=== PATIENT | female | born 1965 | race Caucasian/White ===

== ENCOUNTER → 2017-09-06 | Outpatient (CLI) | payer MEDICAID ==
[~2017-09-06] MED LIST: AA/A14DR7 OT; ACE3 PO; ACE500 PO; ALB17R INH; ALBU8.5H11 INH; ALP25 PO; ALP5 PO; ANUS PR; ASP325 PO; ASPI-1441 PO; ASPI-719 PO; AUG875 PO; AVINZA PO; AZI250 PO; AZIT500T47 PO; CAR3.125 PO; CARV12.577 PO; CEF300 PO; CEFA-83 PO; CEFU250 PO; CEFU500T10 PO; CEP500 PO; CEPH-13 PO; CEPH250S35 PO; CHOL100060 PO; CIPR-326 PO; CLI150 PO; CLO75 PO; CYAN50TA3 PO; CYC10 PO; CYCL10TA29 PO; DAR100 PO; DIA2 PO; DIA5 PO; DIC10 PO; DIC50 PO; DIME50TA PO; DIPH-466 PO; ESTR0.4513 PO; ESTR0.62 PO; ESTR1.2525 PO; ESTR42.5 VG; FENT-60 TD; GAB100 PO; GIC *; HYDR-2946 PO; HYDR-2952 PO; HYDR-3078 PO; HYDR-3140 PO; HYDR-4305 PO; HYDR473S4 PO; HYDROCORTISONE SUPP; HYO375 PO; HYOS0.1225 SL; HYOS0.128 PO; HYOS0.152 PO; IBU200 PO; IBUPROFEN; LEV500 PO; LEVO-85 PO; LEVO50TA86 PO; LOM PO; LOR05 PO; LOR10/325 PO; LOR5 PO; LOR5/325 PO; LOR75 PO; LORA-1221 PO; LORITAB; MAG PO; MAGIC; MAGN296S36 PO; MECL-205 PO; MET800 PO; METH-271 PO; METH-543 PO; METH4TAB57 PO; METH4TAB66 PO; METO25TA93 PO; NAP500; NOR10/325 PO; NOR5/325 PO; OND4 PO; ONDA4TAB PO; ONDA4TAB97 PO; OXYGEN INH; PAN20 PO; PAN40 PO; PER PO; PRE10 PO; PRE20 PO; PRED20TA6 PO; PRO25 PO; RAN150 PO; RANI-325 PO; RANI-366 PO; RIZA10 PO; SALSP; SUCR1ORA13 PO; SUMA100T32 PO; TRAM100T22 PO; [UNRECOGNIZED DRUG - CODE] PO; [UNRECOGNIZED DRUG - OTHER] PO
--- NOTE | 2017-09-06 14:47 | RADIOLOGY IMAGING REPORT ---
FACILITY: [facility] PATIENT NAME: Neha Mcpherson : 1965 MR: [id number] V: [id number] EXAM DATE: ORDERING PHYSICIAN: СЕРГЕЙ FAIR TECHNOLOGIST: Location: [facility] - [place] Patient: Neha Mcpherson : 1965 Visit/Account:[id number] Date of Sevice: 09/06/2017 PELVIS Indication: Low back pain, SI joint pain. Comparison: None. Findings: Bones the pelvis and proximal right and left femur demonstrate normal mineralization. Right and left hip joint space is smooth. There are soft tissue calcifications right and left lower abdome n. Mild degenerative changes are seen in the lower lumbar spine. IMPRESSION: 1. Overall negative pelvic radiograph. 2. Benign soft tissue calcifications in the right and left lower abdomen. Report Dictated By: Bret Zaman at 09/06/2017 2:41 PM Report E-Signed By: Bret Zaman at 09/06/2017 2:42 PM WSN:[id number]
--- NOTE | 2017-09-06 14:47 | RADIOLOGY IMAGING REPORT ---
FACILITY: [facility] [place] PATIENT NAME: Neha Mcpherson : 1965 MR: [id number] V: [id number] EXAM DATE: ORDERING PHYSICIAN: СЕРГЕЙ FAIR TECHNOLOGIST: [facility] Patient: Neha Mcpherson : 1965 Visit/Account:[id number] Date of Sevice: 09/06/2017 SACRUM COCCYX Indication: Low back pain Comparison: None Findings: Sacrum and coccyx are intact and demonstrate normal alignment. Right and left sacroiliac mandeep ints are smooth. Benign-appearing soft tissue calcifications are seen in the soft tissues of the righ t and left buttock. IMPRESSION: Negative sacrum and coccyx radiograph. Report Dictated By: Bret Zaman at 09/06/2017 2:43 PM Report E-Signed By: Bret Zaman at 09/06/2017 2:44 PM WSN:[id number]
== END ==
LOC: RAD 13:37
PROVIDERS: ATTEND Family Medicine
DX: M54.16 Radiculopathy, lumbar region (principal)
CPT/HCPCS: 72170; 72220

== ENCOUNTER 2017-10-25 17:43 | Emergency (ER) | payer MEDICAID ==
--- NOTE | 2017-10-25 18:06 | ER Report ---
History and Physical Time Seen By MD: 18:06 HPI/ROS CHIEF COMPLAINT: Right lower quadrant abdominal pain with radiation to groin and right flank, bright red blood per rectum HISTORY OF PRESENT ILLNESS: Patient is a 52-year-old female here with complaints of bright red blood per rectum, right lower quadrant abdominal pain with radiation to flank and groin without urinary symptoms for the past several weeks. Patient reports associated nausea, cramping abdominal pain. Today she noted that she had dripping bright red blood per rectum in the setting of hemorrhoids and prior history of anemia. Patient is not currently on blood thinners. She also complains of lower extremity edema and was prescribed Lasix however is not currently taking it. Patient is afebrile, hemodynamically stable. Patient denies headache, blurred vision, chest pain, vomiting, fevers or chills, dysuria, hematuria. She does note that she has darker urine than normal. REVIEW OF SYSTEMS: Constitutional: No fever, no chills. Eyes: No discharge. ENT: No sore throat. Cardiovascular: No chest pain, no palpitations. Respiratory: No cough, no shortness of breath. Gastrointestinal: No abdominal pain, no vomiting, + nausea, + BRBPR Genitourinary: No hematuria, + dark urine Musculoskeletal: No back pain. Skin: No rashes. Neurological: No headache. Allergies: Coded Allergies: Penicillins (Verified Allergy, Severe, HIVES, 08/18/16) Sulfa (Sulfonamide Antibiotics) (Verified Allergy, Severe, ITCHING, 08/18/16 ) amoxicillin (Verified Allergy, Severe, RASH, 08/18/16) egg (Verified Allergy, Severe, NAUSEA, 08/18/16) ketorolac (Verified Allergy, Severe, SOB, 08/18/16) morphine (Verified Allergy, Severe, NOT ABLE TO BREATH, 08/18/16) tizanidine (Verified Allergy, Severe, ANAPHYLAXIS, 08/18/16) erythromycin base (Verified Allergy, Intermediate, ITCHING, 08/18/16) oxycodone (Verified Allergy, Intermediate, DYSPNEA, ITCHING, 08/18/16) Pork/Porcine Containing Products (Verified Allergy, Mild, MAKES HER SICK, 08/18/16) chlorpromazine (Verified Allergy, Mild, "I CANT BREATHE!!!!!!", 08/18/16) codeine (Verified Allergy, Mild, ITCHING, 08/18/16) cyclobenzaprine (Verified Allergy, Mild, vertigo if she takes to much, 09/16) doxycycline (Verified Allergy, Mild, ITCHING, 03/14/17) hydroxyzine (Verified Allergy, Mild, HALUCINATE, 08/18/16) tomato (Verified Allergy, Mild, ITCH, 08/18/16) caffeine (Verified Adverse Reaction, Mild, IRRITABLE, 08/18/16) hydromorphone (Verified Adverse Reaction, Mild, DOES NOT LIKE HOW IT MAKES HER FEEL, 08/18/16) Uncoded Allergies: CHOCOLATE FLAVOR (Allergy, Mild, NAUSEA, 10/24/11) Home Meds Active Scripts Prednisone (PREDNISONE) 20 Mg Tablet, 40 MG PO QDAY for 4 Days, #8 TAB Prov:ROSEY MARINELLI DO 10/25/17 Cefuroxime Axetil (CEFUROXIME) 500 Mg Tablet, 500 MG PO BID, #20 TAB Prov:RAFIQ WATTS PA-C 03/14/17 Cyclobenzaprine Hcl (CYCLOBENZAPRINE HCL) 10 Mg Tablet, 5 MG PO TID Y for MUSCLE SPASMS, #9 TAB Prov:FRANCISCO AWANP 03/09/16 Reported Medications Estrogens, Conjugated 0.625 Mg Tab (PREMARIN 0.625 MG TAB) 0.625 Mg Tablet, 0.625 MG PO QDAY, TAB 08/18/16 Ranitidine Hcl (ZANTAC) 150 Mg Tablet, 300 MG PO DAILY, TAB 08/18/16 Levothyroxine Sodium (LEVOTHYROXINE SODIUM) 50 Mcg Tablet, 1 TAB PO QDAY, TAB 02/23/16 Gabapentin (Neurontin) 100 Mg Cap, 100 MG PO TID PT IS PRESCRIBED 200MG TID, BUT SHE STATES SHE WONT TAKE THAT AND TAKES 100MG TID 05/20/12 Acetaminophen/Hydrocodone ([place] 10) 1 Ea Tab, 1-2 TAB PO Q4-6H Y for PAIN 05/20/12 Alprazolam (Xanax) 0.5 Mg Tab, 0.5 MG PO TID Y for ANXIETY, 0 Refills 04/28/11 Discontinued Reported Medications Ondansetron Hcl (ZOFRAN) 4 Mg Tablet, 4 MG PO PRN Y for NAUSEA, TAB 6/2/17 Discontinued Scripts Ondansetron (ZOFRAN ODT) 4 Mg Tab.rapdis, 4 MG PO Q6H Y for NAUSEA/VOMITING, # 12 TAB.NORMA Prov:RAFIQ WATTS Ashley PERRY 03/14/17 Hx Smoking: No Smoking Status: Never Smoker Exposure to Second Hand Smoke?: Yes (LIVES WITH SMOKERS) Hx Substance Use Disorder: No Hx Alcohol Use: No Constitutional Vital Sign - Last 24 Hours 10/25/17 10/25/17 10/25/17 10/25/17 18:01 18:35 18:45 18:45 Temp 98.2 Pulse 84 87 89 Resp 16 16 B/P (MAP) 138/98 150/88 (108) Pulse Ox 89 87 O2 Delivery Room Air 10/25/17 10/25/17 18:45 18:52 Pulse 92 Resp 16 Pulse Ox 97 O2 Delivery Room Air Physical Exam General Appearance: The patient is alert, has no immediate need for airway protection and no signs of toxicity. No acute distress Eyes: Pupils equal and round no pallor or injection. ENT, Mouth: Mucous membranes are moist. Respiratory: There are no retractions, lungs are clear to auscultation. Cardiovascular: Regular rate and rhythm. Gastrointestinal: Abdomen is soft and non tender, no masses, bowel sounds normal, + external hemorrhoids with no occult bleeding Neurological: No focal deficits Skin: Warm and dry, no rashes. Musculoskeletal: Neck is supple non tender. Extremities are nontender, nonswollen and have full range of motion. DIFFERENTIAL DIAGNOSIS: After history and physical exam differential diagnosis was considered for rectal bleed, nephrolithiasis, diverticulitis, cancer, hemorrhoids, anemia Medical Decision Making Data Points Result Diagram: 10/25/17181410/25/171814 Laboratory Hematology Test 10/25/17 17:56 10/25/17 18:15 10/25/17 18:35 Urine Color Straw Urine Clarity Clear Urine pH 6.0 pH (4.8-9.5) Urine Specific [place] 1.003 Urine Protein Negative mg/dL (NEGATIVE) Urine Glucose (UA) Negative mg/dL (NEGATIVE) Urine Ketones Negative mg/dL (NEGATIVE) Urine Blood Moderate (NEGATIVE) Urine Nitrite Negative (NEGATIVE) Urine Bilirubin Negative (NEGATIVE) Urine Urobilinogen Negative mg/dL (0.2-1.9) Urine Leukocyte Esterase Negative (NEGATIVE) Urine RBC <1 /HPF (0-2/HPF) Urine WBC 3 /HPF (0-5/HPF) Urine Squamous Epithelial Cells None /LPF (</=FEW) Urine Bacteria Few /HPF (NONE-FEW) Urine Mucus None /HPF (NONE-FEW) Red Blood Count 4.40 M/uL (4.17-5.56) Mean Corpuscular Volume 92.9 fL (80.0-96.0) Mean Corpuscular Hemoglobin 32.4 pg (26.0-33.0) Mean Corpuscular Hemoglobin Concent 34.9 g/dL (32.0-36.0) Red Cell Distribution Width 12.6 % (11.5-14.5) Mean Platelet Volume 7.9 fL (7.2-11.1) Neutrophils (%) (Auto) 44.3 % (39.4-72.5) Lymphocytes (%) (Auto) 47.4 % (17.6-49.6) Monocytes (%) (Auto) 6.4 % (4.1-12.4) Eosinophils (%) (Auto) 1.6 % (0.4-6.7) Basophils (%) (Auto) 0.3 % (0.3-1.4) Nucleated RBC Relative Count (auto) 0.1 /100WBC Neutrophils # (Auto) 2.4 K/uL (2.0-7.4) Lymphocytes # (Auto) 2.5 K/uL (1.3-3.6) Monocytes # (Auto) 0.3 K/uL (0.3-1.0) Eosinophils # (Auto) 0.1 K/uL (0.0-0.5) Basophils # (Auto) 0.0 K/uL (0.0-0.1) Nucleated RBC Absolute Count (auto) 0.00 K/uL Prothrombin Time 12.6 seconds (12.0-14.4) Prothromb Time International Ratio 0.94 Activated Partial Thromboplast Time 36 seconds (23-35) Sodium Level 140 mmol/L (137-145) Potassium Level 4.0 mmol/L (3.5-5.0) Chloride Level 102 mmol/L (98-107) Carbon Dioxide Level 26 mmol/L (22-31) Blood Urea Nitrogen 11 mg/dl (7-18) Creatinine 0.90 mg/dl (0.52-1.04) Glomerular Filtration Rate Calc > 60.0 Random Glucose 93 mg/dl (75-110) Calcium Level 9.3 mg/dl (8.4-10.2) Total Bilirubin 0.4 mg/dl (0.2-1.3) Aspartate Amino Transf (AST/SGOT) 34 U/L (0-35) Alanine Aminotransferase (ALT/SGPT) 21 U/L (0-56) Alkaline Phosphatase 76 U/L (0-126) Troponin I < 0.012 ng/ml Total Protein 7.7 g/dl (6.3-8.2) Albumin 4.3 g/dl (3.5-5.0) Lipase 37 U/L (23-300) Stool Occult Blood (IFOB) Positive (NEGATIVE) Chemistry Test 10/25/17 17:56 10/25/17 18:15 10/25/17 18:35 Urine Color Straw Urine Clarity Clear Urine pH 6.0 pH (4.8-9.5) Urine Specific [place] 1.003 Urine Protein Negative mg/dL (NEGATIVE) Urine Glucose (UA) Negative mg/dL (NEGATIVE) Urine Ketones Negative mg/dL (NEGATIVE) Urine Blood Moderate (NEGATIVE) Urine Nitrite Negative (NEGATIVE) Urine Bilirubin Negative (NEGATIVE) Urine Urobilinogen Negative mg/dL (0.2-1.9) Urine Leukocyte Esterase Negative (NEGATIVE) Urine RBC <1 /HPF (0-2/HPF) Urine WBC 3 /HPF (0-5/HPF) Urine Squamous Epithelial Cells None /LPF (</=FEW) Urine Bacteria Few /HPF (NONE-FEW) Urine Mucus None /HPF (NONE-FEW) White Blood Count 5.4 k/uL (4.5-11.0) Red Blood Count 4.40 M/uL (4.17-5.56) Hemoglobin 14.3 g/dL (12.0-16.0) Hematocrit 40.9 % (34.0-47.0) Mean Corpuscular Volume 92.9 fL (80.0-96.0) Mean Corpuscular Hemoglobin 32.4 pg (26.0-33.0) Mean Corpuscular Hemoglobin Concent 34.9 g/dL (32.0-36.0) Red Cell Distribution Width 12.6 % (11.5-14.5) Platelet Count 270 K/uL (150-450) Mean Platelet Volume 7.9 fL (7.2-11.1) Neutrophils (%) (Auto) 44.3 % (39.4-72.5) Lymphocytes (%) (Auto) 47.4 % (17.6-49.6) Monocytes (%) (Auto) 6.4 % (4.1-12.4) Eosinophils (%) (Auto) 1.6 % (0.4-6.7) Basophils (%) (Auto) 0.3 % (0.3-1.4) Nucleated RBC Relative Count (auto) 0.1 /100WBC Neutrophils # (Auto) 2.4 K/uL (2.0-7.4) Lymphocytes # (Auto) 2.5 K/uL (1.3-3.6) Monocytes # (Auto) 0.3 K/uL (0.3-1.0) Eosinophils # (Auto) 0.1 K/uL (0.0-0.5) Basophils # (Auto) 0.0 K/uL (0.0-0.1) Nucleated RBC Absolute Count (auto) 0.00 K/uL Prothrombin Time 12.6 seconds (12.0-14.4) Prothromb Time International Ratio 0.94 Activated Partial Thromboplast Time 36 seconds (23-35) Glomerular Filtration Rate Calc > 60.0 Calcium Level 9.3 mg/dl (8.4-10.2) Total Bilirubin 0.4 mg/dl (0.2-1.3) Aspartate Amino Transf (AST/SGOT) 34 U/L (0-35) Alanine Aminotransferase (ALT/SGPT) 21 U/L (0-56) Alkaline Phosphatase 76 U/L (0-126) Troponin I < 0.012 ng/ml Total Protein 7.7 g/dl (6.3-8.2) Albumin 4.3 g/dl (3.5-5.0) Lipase 37 U/L (23-300) Stool Occult Blood (IFOB) Positive (NEGATIVE) Coagulation Test 10/25/17 18:15 Prothrombin Time 12.6 seconds Prothromb Time International Ratio 0.94 Activated Partial Thromboplast Time 36 seconds Urinalysis Test 10/25/17 17:56 Urine Color Straw Urine Clarity Clear Urine pH 6.0 pH (4.8-9.5) Urine Specific [place] 1.003 Urine Protein Negative mg/dL (NEGATIVE) Urine Glucose (UA) Negative mg/dL (NEGATIVE) Urine Ketones Negative mg/dL (NEGATIVE) Urine Blood Moderate (NEGATIVE) Urine Nitrite Negative (NEGATIVE) Urine Bilirubin Negative (NEGATIVE) Urine Urobilinogen Negative mg/dL (0.2-1.9) Urine Leukocyte Esterase Negative (NEGATIVE) Urine RBC <1 /HPF (0-2/HPF) Urine WBC 3 /HPF (0-5/HPF) Urine Squamous Epithelial Cells None /LPF (</=FEW) Urine Bacteria Few /HPF (NONE-FEW) Urine Mucus None /HPF (NONE-FEW) EKG/Imaging EKG Interpretation 12 lead EKG: Normal sinus rhythm rate 88 QTc 459 and no ischemic changes Rhythm: normal sinus rhythm [place]: normal QRS: normal ST segments: normal Monitor Interpretation: Normal Sinus Rhythm Imaging Examination: CHEST PA AND LAT Comparison: 03/14/2017 and earlier. History: Shortness of breath. Findings: Mediastinal postoperative change as before. Cardiac silhouette size is unchanged. No new or enlarging consolidation or nodule. No pneumothorax, edema, or effusion. Osseous structures are intact. IMPRESSION: Mediastinal postoperative change as before. No evidence of acute cardiopulmonary disease. EXAMINATION: CT abdomen and pelvis with contrast COMPARISON: CT 08/23/2009 HISTORY: Right lower quadrant abdominal pain radiating to the right flank and groin. PROCEDURE: Multiplanar contrast enhanced CT of the abdomen and pelvis with 75 mL intravenous Isovue 370. One of the following dose optimization techniques was utilized in the performance of this exam: Automated exposure control; adjustment of the mA and/or kV according to the patient's size; or use of an iterative reconstruction technique. Specific details can be referenced in the facility's radiology CT exam operational policy. FINDINGS: Visualized thorax: Incompletely visualized esophagectomy with an interposition graft in the anterior mediastinum. Liver: Negative. Gallbladder and biliary system: Cholecystectomy with chronic bile duct dilation. Spleen: Negative. Pancreas: Diffuse atrophy. No inflammation. Adrenal glands: Negative. Kidneys and bladder: No renal mass or evidence of an obstructive uropathy. Urinary bladder is unremarkable. Vessels: Within normal limits. Bowel and mesentery: Esophagectomy with an interposition graft in the anterior mediastinum. The interposition graft is anastomosed to the distal lesser curvature/anterior gastric antrum. Additionally, there is focal tenting along the anterior gastric body and adjacent gastric wall presumably related to prior gastrostomy tube. No focal gastric wall thickening or inflammation is identified. No small bowel obstruction. Small amount of stool in the colon. Pelvic organs: Negative. Lymph nodes: No adenopathy. Free air/free fluid: None. Abdominal wall and osseous structures: No abdominal wall hernia. Mild degenerative change of the lower lumbar spine. No acute findings. IMPRESSION: 1. No findings of acute disease in the abdomen or pelvis. 2. Esophageal and gastric surgery as before. 3. Additional nonacute findings as described above. ED Course/Re-evaluation ED Course Patient is a 52-year-old female here with complaints of bright red blood per rectum, right sided abdominal pain with flank pain associated. Abdominal pain has been present for several weeks however blood per rectum has been present today. Patient reports that she has a history of anemia and she also has a history of hemorrhoids which are present on exam. Hemoccult was collected and sent. Patient also complains of mild nausea and mild weakness. Patient is afebrile, hemodynamically stable. EKG showed no ischemic changes normal sinus rhythm. Patient reported that she had shortness of breath and she noted that she usually uses an inhaler at home and feels that her chest is mildly tight. Labs unremarkable. Troponin negative. Patient maintaining oxygen saturations 90% . Hemoccult positive. Patient was recommended to follow up with gastroenterology for further workup of GI bleed. Decision to Disposition Date: Oct 25, 2017 Decision to Disposition Time: 21:00 Depart Departure Latest Vital Signs Vital Signs Date Time Temp Pulse Resp B/P (MAP) Pulse Ox O2 Delivery O2 Flow Rate FiO2 10/25/17 18:52 92 16 10/25/17 18:45 97 Room Air 10/25/17 18:35 150/88 (108) 10/25/17 18:01 98.2 Impression: Primary Impression: Abdominal pain Additional Impression: Gastrointestinal bleeding Condition: Improved Disposition: HOME OR SELF-CARE New Scripts Prednisone (PREDNISONE) 20 Mg Tablet 40 MG PO QDAY for 4 Days, #8 TAB Prov: ROSEY MARINELLI DO 10/25/17 Patient Instructions: Gastrointestinal Bleeding (ED), Prednisone (By mouth) Additional Instructions: Please follow up with surgery or gastroenterology for further evaluation of chest and has bleeding. Please take prednisone 2 tablets daily for 4 days. Please use your inhaler as prescribed. Please drink plenty of water. Please return promptly if you develop fevers, worsening abdominal pain, nausea, vomiting, weakness. Problem Qualifiers ROSEY MARINELLI DO Oct 25, 2017 18:06
[2017-10-25] MEDS ORDERED: NS(*) 0.9% 1000 ML BAG 1,000 ML IV ONE (18:33)
[2017-10-25 18:35] VITALS: BP 150/88
[2017-10-25] MEDS ORDERED: ALBUTEROL/IPRATROPIUM 3 ML NEB NEB ONE (18:35)
[2017-10-25] MEDS ORDERED: ONDANSETRON 4 MG/2 ML VIAL IVP ONE (18:35)
[2017-10-25 18:47] LABS: PLATELET COUNT, AUTOMATED 270 K/uL (150-450)
[2017-10-25] MEDS ORDERED: IOPAMIDOL 76% 100 ML INFUS BTL 100 ML ONE (18:48)
[2017-10-25 18:50] LABS: INR 0.94
--- NOTE | 2017-10-25 18:56 | EKG ---
FACILITY: [facility] PATIENT NAME: EJ HEATON : [id number] MR: [id number] V: [id number] EXAM DATE: ORDERING PHYSICIAN: ROSEY MARINELLI TECHNOLOGIST: WIL Test Reason : BLOOD LOSS Blood Pressure : / mmHG Vent. Rate : 088 BPM Atrial Rate : 088 BPM P-R Int : 164 ms QRS Dur : 098 ms QT Int : 380 ms P-R-T Axes : 058 -04 033 degrees QTc Int : 459 ms Sinus rhythm Nonspecific interventricular conduction delay Borderline left axis Abnormal ECG No previous ECGs available Confirmed by JASWINDER MANLEY ([id number]) on 10/26/2017 6:03:13 AM Referred By: ISIS Confirmed By:JASWINDER MANLEY
--- NOTE | 2017-10-25 20:10 | RADIOLOGY IMAGING REPORT ---
FACILITY: [facility] PATIENT NAME: Neha Mcpherson : 1965 MR: [id number] V: [id number] EXAM DATE: ORDERING PHYSICIAN: ROSEY MARINELLI TECHNOLOGIST: Location: [facility] - [place] Patient: Neha Mcpherson : 1965 Visit/Account:[id number] Date of Sevice: 10/25/2017 EXAMINATION: CT abdomen and pelvis with contrast COMPARISON: CT 08/23/2009 HISTORY: Right lower quadrant abdominal pain radiating to the right flank and groin. PROCEDURE: Multiplanar contrast enhanced CT of the abdomen and pelvis with 75 mL intravenous Isovue 3 70. One of the following dose optimization techniques was utilized in the performance of this exam: A utomated exposure control; adjustment of the mA and/or kV according to the patient's size; or use of an iterative reconstruction technique. Specific details can be referenced in the facility's radiolo gy CT exam operational policy. FINDINGS: Visualized thorax: Incompletely visualized esophagectomy with an interposition graft in the anterior mediastinum. Liver: Negative. Gallbladder and biliary system: Cholecystectomy with chronic bile duct dilation. Spleen: Negative. Pancreas: Diffuse atrophy. No inflammation. Adrenal glands: Negative. Kidneys and bladder: No renal mass or evidence of an obstructive uropathy. Urinary bladder is unrema rkable. Vessels: Within normal limits. Bowel and mesentery: Esophagectomy with an interposition graft in the anterior mediastinum. The inter position graft is anastomosed to the distal lesser curvature/anterior gastric antrum. Additionally, t here is focal tenting along the anterior gastric body and adjacent gastric wall presumably related to prior gastrostomy tube. No focal gastric wall thickening or inflammation is identified. No small bow el obstruction. Small amount of stool in the colon. Pelvic organs: Negative. Lymph nodes: No adenopathy. Free air/free fluid: None. Abdominal wall and osseous structures: No abdominal wall hernia. Mild degenerative change of the lowe r lumbar spine. No acute findings. IMPRESSION: 1. No findings of acute disease in the abdomen or pelvis. 2. Esophageal and gastric surgery as before. 3. Additional nonacute findings as described above. Report Dictated By: Henry Wolf MD at 10/25/2017 7:50 PM Report E-Signed By: Henry Wolf MD at 10/25/2017 8:06 PM WSN:[id number]
--- NOTE | 2017-10-25 20:12 | RADIOLOGY IMAGING REPORT ---
FACILITY: [facility] [place] PATIENT NAME: Neha Mcpherson : 1965 MR: [id number] V: [id number] EXAM DATE: ORDERING PHYSICIAN: ROSEY MARINELLI TECHNOLOGIST: Location: [facility] - [place] Patient: Neha Mcpherson : 1965 Visit/Account:[id number] Date of Sevice: 10/25/2017 Examination: CHEST PA AND LAT Comparison: 03/14/2017 and earlier. History: Shortness of breath. Findings: Mediastinal postoperative change as before. Cardiac silhouette size is unchanged. No new or enlarging consolidation or nodule. No pneumothorax, edema, or effusion. Osseous structures are intac t. IMPRESSION: Mediastinal postoperative change as before. No evidence of acute cardiopulmonary disease. Report Dictated By: Henry Wolf MD at 10/25/2017 8:06 PM Report E-Signed By: Henry Wolf MD at 10/25/2017 8:08 PM WSN:[id number]
[2017-10-25] MEDS ORDERED: PRED20TA6 PO (20:54)
[2017-10-25] MEDS ORDERED: predniSONE 20 MG TAB PO ONE (20:55)
== END 2017-10-25 21:06 | disposition home or self-care (01) ==
LOC: ER 18:08
DX: K92.2 Gastrointestinal hemorrhage, unspecified (principal); R10.31 Right lower quadrant pain; R06.02 Shortness of breath
CPT/HCPCS: 36415; 71046; 74177; 81001; 82274; 83690; 84484; 85025; 85610; 85730; 86850; 86900; 86901; 93005; 94640; 96361; 96374; 99284; J2405; J7030; J7620; Q9967; 82040; 82247; 82310; 82374; 82435; 82565; 82947; 84075; 84132; 84155; 84295; 84450; 84460; 84520

== ENCOUNTER → 2017-12-20 | Outpatient (CLI) | payer MEDICAID | LOC: LAB 15:55 | PROVIDERS: ATTEND Family Medicine | DX: M54.16 Radiculopathy, lumbar region (principal) | CPT/HCPCS: 36415; 82565 ==

== ENCOUNTER → 2018-01-23 | Outpatient (CLI) | payer MEDICAID ==
--- NOTE | 2018-01-23 16:06 | RADIOLOGY IMAGING REPORT ---
FACILITY: [facility] - [place] PATIENT NAME: Neha Mcpherson : 1965 MR: [id number] V: [id number] EXAM DATE: ORDERING PHYSICIAN: СЕРГЕЙ FAIR TECHNOLOGIST: Location: [facility] - [place] Patient: Neha Mcpherson : 1965 Visit/Account:[id number] Date of Sevice: 01/23/2018 L SPINE W W/O CONTRAST COMPARISON: Views of the lumbar spine dated October 21, 2009 Additional pertinent history: Low back pain with radiculopathy involving both lower extremities. Technique: Multiplanar multisequence lumbar spine MRI was performed with and without gadolinium enhan cement. Contrast: 15 ml of MultiHance FINDINGS: Vertebral body heights and alignment: Grade 1 anterior listhesis of L4 on L5. Minimal retrolisthesis of L5 on S1. Vertebral marrow signal: Mild type one degenerative endplate changes at L4-L5. Distal thoracic cord and conus: Negative. The conus ends at L1-L2. Surrounding soft tissues: Negative. Inspection of the disc spaces reveal the following: L5-S1: Posterior broad-based disc protrusion with facet hypertrophic changes. Mild bilateral neural f oraminal narrowing with moderate canal stenosis. L4-L5: Minimal grade 1 anterior listhesis of L4 on L5. Posterior broad-based disc protrusion. Facet h ypertrophic changes. Moderate bilateral neural foraminal narrowing with moderate canal stenosis. L3-L4: Posterior broad-based disc protrusion with facet hypertrophic changes. Mild canal stenosis wit h mild bilateral neural foraminal narrowing. L2-L3: Minimal circumferential disc bulging with facet hypertrophic changes. No significant canal or neural foraminal narrowing. L1-L2: Negative. T12-L1: Negative. Pathologic enhancement: Negative. IMPRESSION: 1. Multilevel spondylitic change as discussed above. 2. Findings of moderate bilateral neural foraminal narrowing and moderate canal stenosis at L4-L5. 3. Moderate canal stenosis with mild bilateral neural foraminal narrowing at L5-S1. Report Dictated By: Bolivar Hough MD at 01/23/2018 3:56 PM Report E-Signed By: Bolivar Hough MD at 01/23/2018 4:02 PM WSN:[email or web address]
== END ==
LOC: MRI 00:33
PROVIDERS: ATTEND Family Medicine
DX: M47.895 Other spondylosis, thoracolumbar region (principal); M48.061 Spinal stenosis, lumbar region without neurogenic claudication
CPT/HCPCS: 72158

== ENCOUNTER 2018-08-14 13:27 | Emergency (ER) | payer MEDICAID ==
[~2018-08-14 13:27] MED LIST changes: +ALB6.7R INH; +CLOB15CR22 TP; +CYAN250013; +DIPH-741 PO; +ESCI20TA38 PO; +FURO20TA19 PO; -HYDR-4305 PO; +HYDR-627 PO; +HYOS0.1225 PO; +PHEN57OI; +SIME62.54 PO; +TIZA2CAP3 PO; +VILA10TA PO; +[UNRECOGNIZED DRUG - CODE] PO
--- NOTE | 2018-08-14 13:33 | ER Report ---
History and Physical Time Seen By MD: 13:31 HPI/ROS CHIEF COMPLAINT: Headache, sinus pressure, nausea, right flank pain flank pain HISTORY OF PRESENT ILLNESS: Patient is a 53-year-old female who presents to the emergency department with complaint of sinus headache. Apparently patient has a history of chronic sinusitis and is on antibiotics monthly. She has a scheduled appointment to see Dr. García Ross for what sounds like sinus surgery to correct her problem. She has not attended that visit yet. Patient states no fevers she does report retro-orbital pain bilaterally when she moves her eyes. She has postnasal drip which is worse at nighttime. She feels congestion to her nose and difficulty breathing at nighttime. She also is complaining of some right flank pain and was recently treated for urinary tract infection. Patient has multiple medical medication and antibiotic allergies. Believes that she takes Levaquin when she gets a sinus infection. REVIEW OF SYSTEMS: ENT: Bilateral ear pain, sinus pressure, no throat pain Respiratory: No cough, no dyspnea. Cardiovascular: No chest pain, no palpitations. Gastrointestinal: No vomiting, no abdominal pain. Musculoskeletal: Right flank pain Allergies: Coded Allergies: Penicillins (Verified Allergy, Severe, HIVES, 08/18/16) Sulfa (Sulfonamide Antibiotics) (Verified Allergy, Severe, ITCHING, 08/18/16) amoxicillin (Verified Allergy, Severe, RASH, 08/18/16) egg (Verified Allergy, Severe, NAUSEA, 08/18/16) ketorolac (Verified Allergy, Severe, SOB, 08/18/16) morphine (Verified Allergy, Severe, NOT ABLE TO BREATH, 08/18/16) tizanidine (Verified Allergy, Severe, ANAPHYLAXIS, 08/18/16) erythromycin base (Verified Allergy, Intermediate, ITCHING, 08/18/16) oxycodone (Verified Allergy, Intermediate, DYSPNEA, ITCHING, 08/18/16) Pork/Porcine Containing Products (Verified Allergy, Mild, MAKES HER SICK, 08/18/16) chlorpromazine (Verified Allergy, Mild, "I CANT BREATHE!!!!!!", 08/18/16) codeine (Verified Allergy, Mild, ITCHING, 08/18/16) cyclobenzaprine (Verified Allergy, Mild, vertigo if she takes to much, 09/16/16) doxycycline (Verified Allergy, Mild, ITCHING, 03/14/17) hydroxyzine (Verified Allergy, Mild, HALUCINATE, 08/18/16) tomato (Verified Allergy, Mild, ITCH, 08/18/16) caffeine (Verified Adverse Reaction, Mild, IRRITABLE, 08/18/16) hydromorphone (Verified Adverse Reaction, Mild, DOES NOT LIKE HOW IT MAKES HER FEEL, 08/18/16) Uncoded Allergies: CHOCOLATE FLAVOR (Allergy, Mild, NAUSEA, 10/24/11) Home Meds Active Scripts Ondansetron Hcl (ZOFRAN) 4 Mg Tablet, 4 MG PO Q8H for Nausea, #15 TAB 0 Refills Prov:SHANNAN DUMONT MD 08/14/18 Levofloxacin 500 Mg Tab (LEVAQUIN 500 MG TAB) 500 Mg Tablet, 500 MG PO BID for 10 Days, #20 TAB 0 Refills Prov:SHANNAN DUMONT MD 08/14/18 Sodium,Potassium,&Mag Sulfates (SUPREP BOWEL PREP KIT) 354 Ml Soln.recon, 354 ML PO ONCE for 1 Day, #1 BOTTLE Prov:JANINA HIGUERA 08/10/18 Cyclobenzaprine Hcl (CYCLOBENZAPRINE HCL) 10 Mg Tablet, 5 MG PO TID PRN for MUSCLE SPASMS, #9 TAB Prov:FRANCISCO AWAN [employer]OR [employer] 03/09/16 Reported Medications Potassium Gluconate (POTASSIUM) 99 Mg Tablet, 99 MG PO 08/14/18 Levothyroxine Sodium (LEVOTHYROXINE SODIUM) 88 Mcg Tablet, 88 MCG PO QDAY 08/14/18 Tizanidine Hcl (TIZANIDINE HCL) Unknown Strength Capsule, PO TID, CAPSULE 08/10/18 Vilazodone Hydrochloride (VIIBRYD) 10 Mg Tablet, 10 MG PO 08/10/18 Cyanocobalamin (Vitamin B-12) (Vitamin B12) Unknown Strength Tab.chew 08/10/18 Clobetasol Propionate/Emoll (CLOBETASOL EMOLLIENT 0.05% CRM) Unknown Strength Cream..g., TP BID 08/10/18 Phenyleph/Mineral Oil/Petrolat (Hemorrhoidal Ointment) Unknown Strength Oint.appl 08/10/18 Diphenhydramine Hcl (BENADRYL ALLERGY) Unknown Strength Tablet, PO Q6-8H, TAB 08/10/18 Simethicone (GAS-X) Unknown Strength Strip, PO, STRIP 08/10/18 Furosemide (LASIX) 20 Mg Tablet, 1 TAB PO Q8H, TAB 02/14/18 Albuterol Sulfate (PROVENTIL HFA) 6.7 Gm Inh, 2 PUFF INH Q4-6H, INH 02/14/18 Hyoscyamine Sulfate (HYOSCYAMINE SULFATE) 0.125 Mg Tablet, 0.125 MG PO 02/14/18 Escitalopram Oxalate (LEXAPRO) 20 Mg Tablet, 10 MG PO QDAY, TAB 02/14/18 Estrogens, Conjugated 0.625 Mg Tab (PREMARIN 0.625 MG TAB) 0.625 Mg Tablet, 0.625 MG PO QDAY, TAB 08/18/16 Ranitidine Hcl (ZANTAC) 150 Mg Tablet, 300 MG PO DAILY, TAB 08/18/16 Levothyroxine Sodium (LEVOTHYROXINE SODIUM) 50 Mcg Tablet, 1 TAB PO QDAY, TAB 02/23/16 Gabapentin (Neurontin) 100 Mg Cap, 100 MG PO TID PT IS PRESCRIBED 200MG TID, BUT SHE STATES SHE WONT TAKE THAT AND TAKES 100MG TID 05/20/12 Acetaminophen/Hydrocodone ([place] 10/325) 1 Ea Tab, 1-2 TAB PO Q4-6H PRN for PAIN 05/20/12 Alprazolam (Xanax) 0.5 Mg Tab, 0.5 MG PO TID PRN for ANXIETY, 0 Refills 04/28/11 Past Medical/Surgical History Patient has a past medical history of 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 Patient has a surgical history of C-spine fusion, back surgery, appendectomy, colectomy, hysterectomy. Hx Smoking: No Smoking Status: Never Smoker Exposure to Second Hand Smoke?: Yes (LIVES WITH SMOKERS) Hx Substance Use Disorder: No Hx Alcohol Use: No Constitutional Vital Sign - Last 24 Hours 08/14/18 08/14/18 13:34 13:42 Temp 99.6 Pulse 98 Resp 18 B/P (MAP) 127/98 Pulse Ox 77 O2 Delivery Room Air O2 Flow Rate 3.5 Physical Exam General Appearance: Alert, no distress. Eyes: Pupils equal and round no pallor or injection. ENT, Mouth: Ears: Tympanic membranes are normal. Nose: No bleeding. Mouth: Mucous membranes are moist. Throat: No erythema or exudates there is no tonsillar hypertrophy and uvula is midline. Patient with posterior pharyngeal cobblestoning. Musculoskeletal: Neck is supple non tender, no adenopathy. Skin: Warm and dry, no rashes. Bedside ultrasound was performed looking at the right flank. No evidence of hydronephrosis visualized. Medical Decision Making Data Points Laboratory Hematology Test 08/14/18 14:00 Urine Color Yellow Urine Clarity Clear Urine pH 7.0 pH (4.8-9.5) Urine Specific [place] 1.005 Urine Protein Negative mg/dL (NEGATIVE) Urine Glucose (UA) Negative mg/dL (NEGATIVE) Urine Ketones Negative mg/dL (NEGATIVE) Urine Blood Small (NEGATIVE) Urine Nitrite Negative (NEGATIVE) Urine Bilirubin Negative (NEGATIVE) Urine Urobilinogen 0.2 mg/dL (0.2-1.9) Urine Leukocyte Esterase Negative (NEGATIVE) Urine RBC 2-3 /HPF (0-2/HPF) Urine WBC 0-1 /HPF (0-5/HPF) Urine Squamous Epithelial Cells Rare /LPF (</=FEW) Urine Bacteria Rare /HPF (NONE-FEW) Urine Mucus None /HPF (NONE-FEW) Chemistry Test 08/14/18 14:00 Urine Color Yellow Urine Clarity Clear Urine pH 7.0 pH (4.8-9.5) Urine Specific [place] 1.005 Urine Protein Negative mg/dL (NEGATIVE) Urine Glucose (UA) Negative mg/dL (NEGATIVE) Urine Ketones Negative mg/dL (NEGATIVE) Urine Blood Small (NEGATIVE) Urine Nitrite Negative (NEGATIVE) Urine Bilirubin Negative (NEGATIVE) Urine Urobilinogen 0.2 mg/dL (0.2-1.9) Urine Leukocyte Esterase Negative (NEGATIVE) Urine RBC 2-3 /HPF (0-2/HPF) Urine WBC 0-1 /HPF (0-5/HPF) Urine Squamous Epithelial Cells Rare /LPF (</=FEW) Urine Bacteria Rare /HPF (NONE-FEW) Urine Mucus None /HPF (NONE-FEW) Urinalysis Test 08/14/18 14:00 Urine Color Yellow Urine Clarity Clear Urine pH 7.0 pH (4.8-9.5) Urine Specific [place] 1.005 Urine Protein Negative mg/dL (NEGATIVE) Urine Glucose (UA) Negative mg/dL (NEGATIVE) Urine Ketones Negative mg/dL (NEGATIVE) Urine Blood Small (NEGATIVE) Urine Nitrite Negative (NEGATIVE) Urine Bilirubin Negative (NEGATIVE) Urine Urobilinogen 0.2 mg/dL (0.2-1.9) Urine Leukocyte Esterase Negative (NEGATIVE) Urine RBC 2-3 /HPF (0-2/HPF) Urine WBC 0-1 /HPF (0-5/HPF) Urine Squamous Epithelial Cells Rare /LPF (</=FEW) Urine Bacteria Rare /HPF (NONE-FEW) Urine Mucus None /HPF (NONE-FEW) Microbiology Microbiology Date/Time Source Procedure Growth Status 08/14/18 14:00 Clean Catch Midstream Ur Urine Culture - Preliminary Resulted ED Course/Re-evaluation ED Course 08/14/2018 2:19:10 pm it was likely sinus headache due to sinus congestion. We'll have her continue her Sudafed and Afrin at home. Patient already has significant amounts of pain medicine at home that she does not require new prescription but will treat with oral Levaquin and also oral Zofran. I will also write a prescription for the patient have home oxygen as her oxygen has run out. She wears the O2 at night. also awaiting urinalysis results. Decision to Disposition Date: Aug 14, 2018 Decision to Disposition Time: 14:33 Depart Departure Latest Vital Signs Vital Signs Date Time Temp Pulse Resp B/P (MAP) Pulse Ox O2 Delivery O2 Flow Rate FiO2 08/14/18 13:42 3.5 08/14/18 13:34 99.6 98 18 127/98 77 Room Air Impression: Primary Impression: Sinus headache Additional Impression: Sinusitis Condition: Improved Disposition: HOME OR SELF-CARE Referrals: СЕРГЕЙ FAIR DO (PCP) New Scripts Ondansetron Hcl (ZOFRAN) 4 Mg Tablet 4 MG PO Q8H for Nausea, #15 TAB 0 Refills Prov: SHANNAN DUMONT MD 08/14/18 Levofloxacin 500 Mg Tab (LEVAQUIN 500 MG TAB) 500 Mg Tablet 500 MG PO BID for 10 Days, #20 TAB 0 Refills Prov: SHANNAN DUMONT MD 08/14/18 Departure Forms: ER Transition Record, Home Oxygen, Nebulizer RX, Home Oxygen Company Chosen by Patient: [employer] Durable Medical Equipment-Oxygen: Oxygen Concentrator, Portable Oxygen Gas Reason for Use/Diagnosis: sinusitis; nocturnal hypoxia Start Date of the Order: Aug 14, 2018 Dosage or Concentration (if applicable) - LPM: 3 Route of Administration (if applicable): Nasal Cannula Frequency of Use: While Sleeping Duration Home O2 Required: 30 Duration Units: Days Room Air Oxygen Saturation: 90 ER Prescribing Physician's Name: Shannan Dumont NPI Numbers for Local ER MDs: Tim [id number] Medications Reconciliation, Patient Portal Information Patient Instructions: Sinusitis (GEN) Problem Qualifiers Additional Impression: Sinusitis Sinusitis location: unspecified location Chronicity: chronic Qualified Codes: J32.9 - Chronic sinusitis, unspecified SHANNAN DUMONT MD Aug 14, 2018 13:33
[2018-08-14 13:34] VITALS: BP 127/98
[2018-08-14] MEDS ORDERED: POTA99TA6 PO (13:40)
[2018-08-14] MEDS ORDERED: LEVO88TA45 PO (13:40)
[2018-08-14] MEDS ORDERED: ONDA4TAB97 PO (14:35)
[2018-08-14] MEDS ORDERED: LEVO-85 PO (14:35)
== END 2018-08-14 14:47 | disposition home or self-care (01) ==
LOC: ER 13:38
DX: J32.9 Chronic sinusitis, unspecified (principal); R51 Headache
CPT/HCPCS: 81001; 87088; 99282

== ENCOUNTER → 2018-10-11 | Outpatient (CLI) | payer MEDICAID ==
[~2018-10-11] MED LIST changes: +CYAN50008 PO; +FURO-45 PO; +IOPAMIDOL 76% 100 ML INFUS BTL 100 ML ONE; +LEVO88TA45 PO; +POTA99TA6 PO; -RANI-366 PO; +RANI-54 PO
[2018-10-11 12:20] LABS: PLATELET COUNT, AUTOMATED 302 K/uL (150-450)
--- NOTE | 2018-10-11 14:17 | RADIOLOGY IMAGING REPORT ---
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 Trevor nal and sagittal reformatting also performed.Dose Lowering Technique One of the following dose optimization techniques was utilized in the performance of this exam: Autom ated exposure control; adjustment of the mA and/or kV according to the patient's size; or use of an i terative reconstruction technique. Specific details can be referenced in the facility's radiology C T exam operational policy. CONTRAST: 75 mL Isovue-370 COMPARISON: October 25, 2017 FINDINGS: Visualized lung bases: Incompletely imaged are postsurgical changes from an esophagectomy with inter position graft along the anterior right side of the mediastinum Hepatobiliary: There postsurgical changes from a cholecystectomy with chronic intra and extrahepatic biliary ductal dilatation Spleen: Negative. Adrenals: Negative. Pancreas: Diffuse atrophy Kidneys ureters and bladder: Negative. Genitalia: Hysterectomy GI: Incompletely imaged are surgical changes from esophagectomy with interposition graft intermedias tinum. The graft anastomosis is to the anterior gastric antrum. Again noted is focal tenting along the anterior gastric body and adjacent gastric wall presumably related to a prior gastrostomy tube. Vessels/spaces/nodes: Negative. Bones/soft tissues: Spondylotic changes in the lower lumbar spine appear similar to the prior study Additional findings: None pertinent. IMPRESSION: Postsurgical changes from esophagectomy with interposition graft in the anterior mediastinum. The an astomosis is to the anterior gastric antrum and appears relatively unchanged Additional chronic findings as described Report Dictated By: Mary Hernandez MD at 10/11/2018 1:56 PM Report E-Signed By: Mary Hernandez MD at 10/11/2018 2:11 PM WSN:[email or web address]
== END ==
LOC: CT 00:17
PROVIDERS: ATTEND Surgery
DX: K92.2 Gastrointestinal hemorrhage, unspecified (principal); R10.9 Unspecified abdominal pain
CPT/HCPCS: 36415; 74178; 82565; 85025; Q9967

== ENCOUNTER 2018-11-21 00:47 | Observation (INO) | payer MEDICAID ==
--- NOTE | 2018-10-10 16:51 | EKG ---
FAC[place] [facility] [place] NAME: EJ HEATON : [id number] MR: [id number] V: [id number] EXAM DATE: ORDERING PHYSICIAN: JOSH LOMAX TECHNOLOGIST: WIL Test Reason : PREOP Blood Pressure : / mmHG Vent. Rate : 093 BPM Atrial Rate : 093 BPM P-R Int : 170 ms QRS Dur : 106 ms QT Int : 362 ms P-R-T Axes : 069 013 055 degrees QTc Int : 450 ms Normal sinus rhythm Low voltage QRS Incomplete right bundle branch block Borderline ECG When compared with ECG of 25-OCT-2017 18:46, Previous ECG has undetermined rhythm, needs review Minimal criteria for Inferior infarct are no longer present Confirmed by CHRISTIANO PHILIP ([id number]) on 10/11/2018 6:05:10 AM Referred By: DAVIDA Confirmed By:CHRISTIANO PHILIP
[2018-11-21] VITALS (11 sets, daily range): BP systolic 100–142; BP diastolic 64–84
[~2018-11-21] VITALS: Ht 162.6 cm; Wt 76.7 kg
[~2018-11-21 00:47] MED LIST changes: +FAMOTIDINE 20 MG TAB PO ONE; -IOPAMIDOL 76% 100 ML INFUS BTL 100 ML ONE; +LIDOCAINE/SOD BICARB 8.4% SYR ID ONE; +MIDAZOLAM 2 MG/2 ML VIAL IVP PRN; +NORMOSOL R SOLN(*) 1000 ML BAG 1,000 ML IV PRN
[2018-11-21] MEDS ORDERED: NORMOSOL R SOLN(*) 1000 ML BAG 1,000 ML IV PRN (06:30)
[2018-11-21] MEDS ORDERED: LIDOCAINE/SOD BICARB 8.4% SYR ID ONE (06:30)
[2018-11-21] MEDS ORDERED: LIDOCAINE/PF 2% 200MG/10ML AMP 200 MG/10 ML AMPUL ONE (06:59)
[2018-11-21] MEDS ORDERED: BUPIVACAINE/EPI 0.5% 50ML VIAL INFIL ONE (07:00)
[2018-11-21] MEDS ORDERED: LIDOCAINE 2% 200MG/10ML UROJET ONE (07:03)
[2018-11-21] MEDS ORDERED: SUCCINYLCHOL CHL 100MG/5ML SYR IVP ONE (07:37)
[2018-11-21] MEDS ORDERED: PROPOFOL EMUL(*) 10MG/ML 20 ML 60 ML ONE (07:37)
[2018-11-21] MEDS ORDERED: MIDAZOLAM 2 MG/2 ML VIAL ONE (07:43)
[2018-11-21] MEDS ORDERED: FAMOTIDINE(*) 20MG/50ML PREMIX 50 ML IVPB ONE (07:47)
[2018-11-21] MEDS ORDERED: FAMOTIDINE 20 MG/50 ML PREMIX IVPB ONE (07:55)
[2018-11-21] MEDS ORDERED: MIDAZOLAM 2 MG/2 ML VIAL IVP ONE (07:56)
[2018-11-21] MEDS ORDERED: SUGAMMADEX SOD 200 MG/2 ML SDV ONE (08:55)
[2018-11-21] MEDS ORDERED: DEXAMETHASONE SOD PHOS 10MG/ML ONE (09:02)
[2018-11-21] MEDS ORDERED: ONDANSETRON 4 MG/2 ML VIAL ONE (09:02)
[2018-11-21] MEDS ORDERED: ROCURONIUM BR 10 MG/ML 5 ML SY 5 ML ONE (09:02)
[2018-11-21] MEDS ORDERED: fentaNYL CITR 100 MCG/2 ML AMP ONE (09:22)
[2018-11-21] MEDS ORDERED: CYCLOBENZAPRINE HCL 10 MG TAB PO PRN (18:15)
[2018-11-21] MEDS ORDERED: ALPRAZolam 0.5 MG TAB PO PRN (18:15)
[2018-11-21] MEDS ORDERED: ALBUTEROL 8 GM INHALER INH PRN (18:15)
[2018-11-21] MEDS: APAP/HYDROCODONE 325/10 TAB PO PRN (19:56)
[2018-11-21] MEDS: GABAPENTIN 100 MG CAP PO SCH (21:04)
--- NOTE | 2018-11-21 22:19 | OPERATIVE REPORT 1 ---
EVENT DATE: November 21, 2018 SURGEON: Maksim Julien MD ANESTHESIOLOGIST: Oscar Lundberg MD ANESTHESIA: General. SURGICAL TECHNOLOGY INSTRUCTOR: None. PREOPERATIVE DIAGNOSES 1. Dysphagia. 2. Blood per rectum. POSTOPERATIVE DIAGNOSES 1. Dysphagia. 2. Blood per rectum. PROCEDURES PERFORMED 1. Esophagogastroduodenoscopy with biopsy and dilation. 2. Colonoscopy. 3. Hemorrhoid banding. FLUIDS IV crystalloid. ESTIMATED BLOOD LOSS Minimal. SPECIMENS Biopsy from antrum. COMPLICATIONS None. 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 She also has reflux. She has bright red blood per rectum. She does have hemorrhoids that she can feel, but this was discussed at length, and she does not want a hemorrhoidectomy. Risks and benefits of the procedures were explained, and consent was signed. DESCRIPTION OF PROCEDURE Patient was taken to the operating room and placed in the supine position. General anesthesia was administered per the anesthesia team. Patient was placed in the left lateral position. Bite block was placed. The gastroscope was advanced through the oropharynx down into the colonic interposition graft. This graft appeared healthy. There was a narrowing at the junction between the stomach and the graft. The scope was passed into the stomach. The stomach was unremarkable. The junction of the stomach and the small bowel was identified; however, it did appear quite narrow, and I was unable to enter due to its angle. Therefore, the small bowel was not visualized, and I could not tell exactly how tight the pylorus was. Biopsy was taken from the antrum. The scope was withdrawn into the interposition graft, and dilation was performed. This was performed progressively with the 9 to 12 mm balloon, followed by the 13 to 15 mm balloon, and followed by the 16 to 18 balloon. The final balloon did result in a very small amount of bleeding. Scope was withdrawn. Again, the graft was inspected and appeared healthy. Attention was then turned to the colonoscopy. Digital rectal exam and perianal exam were performed. Patient did have some external hemorrhoids. They were not thrombosed. Digital rectal exam was unremarkable. Colonoscope was advanced. There was some tortuosity in the area of the sigmoid colon; however, I was able to advance all the way to the cecum, which was identified by the appendiceal orifice and the ileocecal valve. The scope was withdrawn examining the mucosa along the entire length of the colon. The anastomosis was seen and appeared healthy, and it was patent. There were no polyps, no masses, and no colitis. There were some medium-sized internal hemorrhoids, and three bands were placed on these. Patient tolerated the procedure well. There were no complications. MENDEZ
[2018-11-22] MEDS: APAP/HYDROCODONE 325/10 TAB PO PRN ×2 (00:20→05:52)
[2018-11-22] MEDS ORDERED: ONDANSETRON 4 MG TAB PO PRN (01:00)
[2018-11-22 03:25] VITALS: BP 119/78
[2018-11-22] MEDS ORDERED: LEVOTHYROXINE SOD 0.088 MG TAB PO SCH (06:00)
[2018-11-22 07:28] VITALS: BP 89/54
--- NOTE | 2018-11-22 07:37 | Short(Outpt) Discharge Summary ---
Discharge Summary Reason for Hosp/Final Diag: (1) Dysphagia Status: Acute Hospital Course & Plan: pt presented for egd and colonoscopy. she stayed overnight because she did not have a right home. she did fine overnight. will d/c home. Departure Discharge to: Home Discharge Instructions Home Meds Active Scripts Ondansetron Hcl (ZOFRAN) 4 Mg Tablet, 4 MG PO Q8H for Nausea, #15 TAB 0 Refills Prov:SHANNAN SPEAR MD 08/14/18 Sodium,Potassium,&Mag Sulfates (SUPREP BOWEL PREP KIT) 354 Ml Soln.recon, 354 ML PO ONCE for 1 Day, #1 BOTTLE Prov:JANINA HIGUERA 08/10/18 Cyclobenzaprine Hcl (CYCLOBENZAPRINE HCL) 10 Mg Tablet, 5 MG PO TID PRN for MUSCLE SPASMS, #9 TAB Prov:FRANCISCO AWAN 03/09/16 Reported Medications Furosemide (FUROSEMIDE) 20 Mg Tablet, 1 TAB PO DAILY, TAB 09/06/18 Cyanocobalamin (Vitamin B-12) (Vitamin B12) 5,000 Mcg Tab.rapdis, 500 MG PO DAILY 09/06/18 Potassium Gluconate (POTASSIUM) 99 Mg Tablet, 99 MG PO 08/14/18 Levothyroxine Sodium (LEVOTHYROXINE SODIUM) 88 Mcg Tablet, 88 MCG PO QDAY 08/14/18 Clobetasol Propionate/Emoll (CLOBETASOL EMOLLIENT 0.05% CRM) Unknown Strength Cream..g., TP BID 08/10/18 Phenyleph/Mineral Oil/Petrolat (Hemorrhoidal Ointment) Unknown Strength Oint.ap pl 08/10/18 Diphenhydramine Hcl (BENADRYL ALLERGY) Unknown Strength Tablet, PO Q6-8H, TAB 08/10/18 Simethicone (GAS-X) Unknown Strength Strip, PO, STRIP 08/10/18 Albuterol Sulfate (PROVENTIL HFA) 6.7 Gm Inh, 2 PUFF INH Q4-6H, INH 02/14/18 Estrogens, Conjugated 0.625 Mg Tab (PREMARIN 0.625 MG TAB) 0.625 Mg Tablet, 0.625 MG PO QDAY, TAB 08/18/16 Ranitidine Hcl (ZANTAC) 150 Mg Tablet, 300 MG PO DAILY, TAB 08/18/16 Gabapentin (Neurontin) 100 Mg Cap, 100 MG PO TID PT IS PRESCRIBED 200MG TID, BUT SHE STATES SHE WONT TAKE THAT AND TAKES 100MG TID 05/20/12 Acetaminophen/Hydrocodone ([place] 10) 1 Ea Tab, 1-2 TAB PO Q4-6H PRN for PAIN 05/20/12 Alprazolam (Xanax) 0.5 Mg Tab, 0.5 MG PO TID PRN for ANXIETY, 0 Refills 04/28/11 Diet: Regular Activity: As Tolerated Special Instructions: we will call you in 10 days with biopsy results. JANINA HIGUERA Nov 22, 2018 07:37
[2018-11-22] MEDS: GABAPENTIN 100 MG CAP PO SCH (08:15)
[2018-11-22 08:54] VITALS: Ht 162.6 cm; Wt 76.7 kg
[2018-11-22] MEDS ORDERED: RANITIDINE HCL 150 MG TAB PO SCH (09:00)
[2018-11-22] MEDS ORDERED: FUROSEMIDE 20 MG TAB PO SCH (09:00)
== END 2018-11-22 07:36 | disposition home or self-care (01) ==
LOC: OR 00:47 → MED 11:10
PROVIDERS: ADMIT Surgery; ATTEND Surgery
DX: K62.5 Hemorrhage of anus and rectum (principal); R13.10 Dysphagia, unspecified; I48.2 Chronic atrial fibrillation
CPT/HCPCS: 00813; 36415; 43239; 43249; 45398; 88305; 88342; 93005; C1726; G0378; J0330; J1100; J2250; J2405; J2704; J3010; 82040; 82247; 82310; 82374; 82435; 82565; 82947; 84075; 84132; 84155; 84295; 84450; 84460; 84520; J2001